=== PATIENT | male | born 1970 | race Caucasian/White ===

== ENCOUNTER → 2023-09-15 08:20 | Day surgery (SDC) | payer OTHER, SELFPAY | LOC: GI 08:20 | PROVIDERS: ATTENDING PHYSICIAN Internal Medicine Gastroenterology | DX: Z12.11 Encounter for screening for malignant neoplasm of colon (principal); K64.8 Other hemorrhoids; K57.30 Diverticulosis of large intestine without perforation or abscess without bleeding | CPT/HCPCS: G0121 ==

== ENCOUNTER → 2024-09-10 13:44 | Outpatient (REF) | payer OTHER, SELFPAY | LOC: RAD 13:44 | PROVIDERS: ATTENDING PHYSICIAN Family Medicine | DX: R79.89 Other specified abnormal findings of blood chemistry (principal) | CPT/HCPCS: 76770 ==